=== PATIENT | male | born 1975 | race Caucasian/White ===

== ENCOUNTER 2016-12-06 11:03 | Emergency (ER) | payer OTHER ==
--- NOTE | 2016-12-06 11:36 | ERPHSYRPT ---
- History of Present Illness Time Seen by Provider: 12/06/16 11:31 Source: patient Exam Limitations: no limitations Patient Subjective Stated Complaint: sharpening mower blade last night and thinks he may have gotten a metal shaving in his right eye. pain and irritation to right eye Triage Nursing Assessment: right eye red with clear drainage noted. vision is 20/30 right eye and 20/20 left eye without correction. no fb noted at this time Physician History: sharpening mower blade last night and thinks he may have gotten a metal shaving in his right eye. pain and irritation to right eye, c/o pain and irritation on right lower outer quadrant of eye, no visual deficit, no peripheral vision deficit Timing/Duration: yesterday Location: right eye Severity: mild Apparent Injury: possibly Associated Symptoms: pain, sensitivity to light, redness, foreign body sensation , No burning, No itching, No eyelid swelling, No decreased vision, No blurred vision, No double vision Visual Assistive Devices: None Chemical Exposure: No Trauma: No Welding Arc/Tanning Bed Exposure: No Allergies/Adverse Reactions: adhesive Allergy (Mild, Verified 12/06/16 11:21) blueberry [Blueberry] Allergy (Mild, Verified 12/06/16 11:21) promethazine HCl [From Phenergan] Allergy (Mild, Verified 12/06/16 11:21) Home Medications: Clonazepam [Klonopin] 0.25 mg PO BID 11/16/12 [History] Morphine Sulfate Cr 60 mg [Ms Contin 60 mg] 15 mg PO BID 11/16/12 [History ] Meloxicam 7.5 mg [Mobic 7.5 MG] 7.5 mg PO HS 05/18/14 [History] Tizanidine HCl 4 mg [Zanaflex 4 MG] 4 mg PO HS 05/18/14 [History] Hx Tetanus, Diphtheria Vaccination/Date Given: Yes Hx Influenza Vaccination/Date Given: No Hx Pneumococcal Vaccination/Date Given: No - Review of Systems Constitutional: No Symptoms Eyes: Eye Pain, Eye Redness, Tearing, Foreign Body Sensation, No Itchy, No Photophobia, No Vision Changes, No Double Vision Ears, Nose, & Throat: No Symptoms Respiratory: No Symptoms Cardiac: No Symptoms - Past Medical History Pertinent Past Medical History: Yes Neurological History: Migraines Cardiac History: Other Respiratory History: No Pertinent History Endocrine Medical History: No Pertinent History Musculoskeletal History: Osteoarthritis Psycho-Social History: Anxiety Other Medical History: heart leaky valve - Past Surgical History Past Surgical History: Yes Gastrointestinal: Appendectomy Genitourinary: Kidney Surgery Musculoskeletal: Orthopedic Surgery Other Surgical History: back surgery, left and right knee, wrist surgery, sperm granuloma, left arm fx - Social History Smoking Status: Current every day smoker How long have you smoked: 31 Exposure to second hand smoke: No Drug Use: none Patient Lives Alone: No - Nursing Vital Signs Nursing Vital Signs: Initial Vital Signs Temperature 97.5 F 12/06/16 11:11 Pulse Rate 85 12/06/16 11:11 Respiratory Rate 16 12/06/16 11:11 Blood Pressure 117/74 12/06/16 11:11 O2 Sat by Pulse Oximetry 98 12/06/16 11:11 Pain Scale Pain Intensity 4 - Physical Exam General Appearance: no apparent distress Vision Acuity Right Eye: 20/20 Vision Acuity Left Eye: 20/20 Eye Exam: right eye: conjunctival hemorrhage, conjunctival inflammation, erythema (right lower outer quadrant), bilateral eye: PERRL, EOMI Ears, Nose, Throat Exam: normal ENT inspection SpO2: 98 Oxygen Delivery: Room Air - Course Nursing assessment & vital signs reviewed: Yes - Progress Progress: unchanged Counseled pt/family regarding: diagnosis, need for follow-up (with spinning mule tender or wood fence installer for further treatment) - Departure Time of Disposition: 11:40 Departure Disposition: Home Clinical Impression: Injury of right conjunctiva Qualifiers: Encounter type: initial encounter Qualified Code(s): S05.01XA - Injury of conjunctiva and corneal abrasion without foreign body, right eye, initial encounter Condition: Stable Critical Care Time: No Referrals: JOHAN GRULLON [Primary Care Provider] - MINNA ABERNATHY OD [NON-STAFF PHY W/O PRIVILEGES] - Instructions: Red Eye, Instill Eye Drops Additional Instructions: Please follow the instructions given to you. Please take your medication as prescribed if given. If symptoms recur or get worse, come back to the emergency room if you cannot reach your primary care physician, or call your primary care physician for an appointment. Again if your symptoms get worse, come back to the emergency room. Thanks for visiting emergency room, and let us take care of you.follow-up with your eye doctor on Wednesday Prescriptions: Tobramycin Sulfate/Dexameth [Tobradex Eye Drops] 2 drops OP QID #5 bottle
[2016-12-06 11:50] VITALS: BP 107/81; PULSE 81; O2SAT 96
== END 2016-12-06 11:50 | disposition home or self-care (01) ==
LOC: ED 11:03
DX: S05.01XA Injury of conjunctiva and corneal abrasion without foreign body, right eye, initial encounter (principal); W28.XXXA Contact with powered lawn mower, initial encounter
CPT/HCPCS: 99281

== ENCOUNTER 2018-01-20 17:24 | Emergency (ER) | payer OTHER ==
--- NOTE | 2018-01-20 17:41 | ERPHSYRPT ---
- History of Present Illness Time Seen by Provider: 01/20/18 17:39 Source: patient Physician History: mild ache pain of the left foot for 2months, no injury, no fever, pt is ambulatory, pt refused pain med Allergies/Adverse Reactions: adhesive Allergy (Mild, Verified 01/20/18 17:38) blueberry [Blueberry] Allergy (Mild, Verified 01/20/18 17:38) promethazine HCl [From Phenergan] Allergy (Mild, Verified 01/20/18 17:38) Home Medications: Morphine Sulfate Cr 60 mg [Ms Contin 60 mg] 15 mg PO BID 11/16/12 [History ] clonazePAM [Klonopin] 0.25 mg PO BID 11/16/12 [History] Tizanidine HCl 4 mg [Zanaflex 4 MG] 4 mg PO HS 05/18/14 [History] Hydrocodone Bit/Acetaminophen [Hydrocodon-Acetaminophn 10-325] 1 each PO QIDPRN PRN 01/20/18 [History] Hx Tetanus, Diphtheria Vaccination/Date Given: Yes Hx Influenza Vaccination/Date Given: No Hx Pneumococcal Vaccination/Date Given: No - Review of Systems Constitutional: No Fever Respiratory: No Dyspnea Cardiac: No Chest Pain Musculoskeletal: No Neck Pain, No Fall Skin: No Rash, No Skin Lesions Neurological: No Dizziness - Past Medical History Pertinent Past Medical History: Yes Neurological History: Migraines Cardiac History: Other Respiratory History: No Pertinent History Endocrine Medical History: No Pertinent History Musculoskeletal History: Osteoarthritis Psycho-Social History: Anxiety Other Medical History: heart leaky valve - Past Surgical History Past Surgical History: Yes Gastrointestinal: Appendectomy Genitourinary: Kidney Surgery Musculoskeletal: Orthopedic Surgery Other Surgical History: back surgery, left and right knee, wrist surgery, sperm granuloma, left arm fx - Social History Smoking Status: Current every day smoker How long have you smoked: 31 Exposure to second hand smoke: No Drug Use: none Patient Lives Alone: No - Nursing Vital Signs Nursing Vital Signs: Initial Vital Signs Temperature 97.9 F 01/20/18 17:36 Pulse Rate 75 01/20/18 17:36 Respiratory Rate 16 01/20/18 17:36 Blood Pressure 126/82 01/20/18 17:36 O2 Sat by Pulse Oximetry 96 01/20/18 17:36 Pain Scale Pain Intensity 5 - Physical Exam General Appearance: no apparent distress Extremity Exam: other (tender lateral mid left foot, no sts, no erythema, nontender ankle, full benson, sen and pulses intact) Neurologic Exam: alert, oriented x 3, cooperative Skin Exam: normal color, warm, dry, No rash - Course Nursing assessment & vital signs reviewed: Yes - Radiology Exams Foot X-ray Interpretation: Reviewed by me, No Fracture Ordered Tests: Active Orders 24 hr Category Date Time Status FOOT (MINIMUM 3 VIEWS) Stat Exams 01/20/18 Ordered Uric Acid Stat Lab 01/20/18 17:55 Completed Lab/Rad Data: Laboratory Results 01/20/18 Range/Units 17:55 Uric Acid 5.7 (3.5-7.2) mg/dL - Progress Progress: unchanged - Departure Time of Disposition: 18:49 Departure Disposition: Home Clinical Impression: Injury of right ankle and foot Qualifiers: Encounter type: initial encounter Qualified Code(s): S99.911A - Unspecified injury of right ankle, initial encounter; S99.921A - Unspecified injury of right foot, initial encounter Condition: Stable Critical Care Time: No Instructions: Contusion (DC) Additional Instructions: see [facility] [phone] orthopedics, return if worse, anna marie
[2018-01-20 19:04] VITALS: BP 103/66; PULSE 71; O2SAT 96
--- NOTE | 2018-01-21 09:06 | XRAY ---
Indication: Lateral pain for several months. No known injury. Comparison: None 3 nonweightbearing views of the left foot obtained. No bony, articular, or soft tissue abnormalities.
== END 2018-01-20 19:06 | disposition home or self-care (01) ==
LOC: ED 17:24
DX: S99.911A Unspecified injury of right ankle, initial encounter (principal); M19.90 Unspecified osteoarthritis, unspecified site; F32.9 Major depressive disorder, single episode, unspecified; Z79.899 Other long term (current) drug therapy
CPT/HCPCS: 36415; 73630; 84550; 99284

== ENCOUNTER 2018-05-20 17:10 | Emergency (ER) | payer OTHER ==
[2018-05-20 17:32] VITALS: O2SAT 98
[2018-05-20] MEDS ORDERED: Adacel Vial IM ONE ×2 (17:51→17:53)
--- NOTE | 2018-05-20 18:11 | ERPHSYRPT ---
- History of Present Illness Time Seen by Provider: 05/20/18 17:30 Source: patient Exam Limitations: clinical condition Patient Subjective Stated Complaint: CUT LEFT THUMB ON RAZOR KNIFE AT HOME THIS AM. HAD PRESSURE DRESSING ON IT ALL DAY BUT WILL NOT QUIT BLEEDING. TAKES ASA EVERYDAY. Triage Nursing Assessment: AMBULATED TO ROOM PER SELF. SKIN W/D. HAS 2CM LAC ALONG NAIL LINE OF LEFT THUMB. MINIMAL BLEEDING NOTED WITH DRESSING OFF. PRESSURE APPLIED AND THEN SOAKED IN HIBILCLENS. Physician History: PATIENT STATES WHILE AT WORK SUSTAINED A LACERATION TO TIP OF LEFT THUMB FROM RAZOR KNIFE. PATIENT COMPLAINS OF MINIMAL BLEEDING. Occurred: just prior to arrival Method of Injury: incised Quality: other (DENIES PAIN) Severity of Pain-Max: none Severity of Pain-Current: none Extremities Pain Location: thumb: left Modifying Factors: Improves With: nothing Associated Symptoms: none Allergies/Adverse Reactions: adhesive Allergy (Mild, Verified 01/20/18 17:38) blueberry [Blueberry] Allergy (Mild, Verified 01/20/18 17:38) promethazine HCl [From Phenergan] Allergy (Mild, Verified 01/20/18 17:38) prednisone Adverse Reaction (Verified 05/20/18 17:28) Home Medications: Morphine Sulfate Cr 60 mg [Ms Contin 60 mg] 15 mg PO BID 11/16/12 [History ] clonazePAM [Klonopin] 0.25 mg PO BID 11/16/12 [History] Tizanidine HCl 4 mg [Zanaflex 4 MG] 4 mg PO HS 05/18/14 [History] Hydrocodone Bit/Acetaminophen [Hydrocodon-Acetaminophn 10-325] 1 each PO QIDPRN PRN 01/20/18 [History] Hx Tetanus, Diphtheria Vaccination/Date Given: No Hx Influenza Vaccination/Date Given: No Hx Pneumococcal Vaccination/Date Given: No - Review of Systems Constitutional: No Symptoms Musculoskeletal: Injury Neurological: No Symptoms Psychological: No Symptoms Endocrine: No Symptoms - Past Medical History Pertinent Past Medical History: Yes Neurological History: Migraines Cardiac History: Other Respiratory History: No Pertinent History Endocrine Medical History: No Pertinent History Musculoskeletal History: Osteoarthritis Psycho-Social History: Anxiety Other Medical History: heart leaky valve - Past Surgical History Past Surgical History: Yes Gastrointestinal: Appendectomy Genitourinary: Kidney Surgery Musculoskeletal: Orthopedic Surgery Other Surgical History: back surgery, left and right knee, wrist surgery, sperm granuloma, left arm fx - Social History Smoking Status: Current every day smoker How long have you smoked: 29 Exposure to second hand smoke: No Drug Use: none Patient Lives Alone: No - Nursing Vital Signs Nursing Vital Signs: Initial Vital Signs Temperature 98.5 F 05/20/18 17:20 Pulse Rate 63 05/20/18 17:20 Respiratory Rate 16 05/20/18 17:20 Blood Pressure 126/83 05/20/18 17:20 O2 Sat by Pulse Oximetry 98 05/20/18 17:20 Pain Scale Pain Intensity 1 - Physical Exam General Appearance: no apparent distress Hand Exam: soft tissue tenderness (THERE IS A 8MM SUPERFICAL LACERATION ADJACENT TO NAIL FOLD RADIAL ASPECT LEFT THUMB) DTR - Upper Extremity Exam: bicep (R): 2+, bicep (L): 2+, tricep (R): 2+, tricep (L): 2+ SpO2 Interpretation: normal SpO2: 98 Procedures - Laceration/Wound Repair Left Other Wound Location: Left (THUMB) Wound Length (cm): 0.8 Wound's Depth, Shape: superficial, linear Wound Explored: clean Irrigated: Yes Hibiclens Prep: Yes Anesthesia: digital block, 2% Lidocaine Volume Anesthetic (ccs): 3 Wound Repaired With: sutures Suture Size/Type: 5-0 Number of Sutures: 3 Sterile Dressing Applied?: Yes Ordered Tests: Medication Summary Discontinued Medications Generic Name Dose Route Start Last Admin Trade Name Freq PRN Reason Stop Dose Admin Diphtheria/Tetanus/Acell Pertussis 0.5 ml 05/20/18 17:51 05/20/18 17:54 Adacel Vial IM 05/20/18 17:52 0.5 ml .ONCE ONE Administration Diphtheria/Tetanus/Acell Pertussis Confirm 05/20/18 17:53 Adacel Vial Administered 05/20/18 17:54 Dose 0.5 ml IM .STK-MED ONE - Progress Progress Note: 05/20/18 18:10 ADMINISTERED ADACEL 0.5ML IM - Departure Time of Disposition: 18:15 Departure Disposition: Home Clinical Impression: LACERATION LEFT THUMB Condition: Stable Critical Care Time: No Referrals: NELLI FALCON [Primary Care Provider] - Additional Instructions: TYLENOL OR MOTRIN NEEDED FOR PAIN. HAVE STITCHES REMOVED AT 10 DAYS. WATCH FOR SIGNS OF INFECTION, REDNESS, SWELLING OR DRAINAGE. ANTIBIOTIC AUGMENTIN 875 MG TWICE DAILY FOR 7 DAYS. CLEANSE WOUND WITH SOAP AND WATER 4-5 TIMES DAILY NEEDED. Prescriptions: Amox Tr/Potass Clav. 875 mg [Augmentin 875-125 Tablet] 875 mg PO BID #14 tablet
[2018-05-20 18:13] VITALS: BP 112/84; PULSE 71
== END 2018-05-20 18:20 | disposition home or self-care (01) ==
LOC: ED 17:10
DX: S61.012A Laceration without foreign body of left thumb without damage to nail, initial encounter (principal); W45.8XXA Other foreign body or object entering through skin, initial encounter
CPT/HCPCS: 12001; 90471; 90715; 99283

== ENCOUNTER 2018-12-04 18:20 | Emergency (ER) | payer OTHER ==
--- NOTE | 2018-12-04 18:23 | ERPHSYRPT ---
- History of Present Illness Time Seen by Provider: 12/04/18 18:22 Source: patient, family Exam Limitations: no limitations Physician History: 43 y/o white male presents with headache, dizziness and persistent nausea 20 to 30 minutes after orozco of car he was working on fell onto back of head causing forehead and left eyebrow to hit object. pt states his tetanus status is utd. Occurred: just prior to arrival Severity: mild Head Injury Location: frontal, parietal Method of Injury: direct blow (from orozco of a car) Loss of Consciousness: no loss of consciousness Associated Symptoms: nausea, other (dizziness) Allergies/Adverse Reactions: adhesive Allergy (Mild, Verified 12/04/18 18:36) blueberry [Blueberry] Allergy (Mild, Verified 12/04/18 18:36) promethazine HCl [From Phenergan] Allergy (Mild, Verified 12/04/18 18:36) prednisone Adverse Reaction (Verified 12/04/18 18:36) Home Medications: Morphine Sulfate Cr 60 mg [Ms Contin 60 mg] 15 mg PO BID 11/16/12 [History ] Tizanidine HCl 4 mg [Zanaflex 4 MG] 4 mg PO HS 05/18/14 [History] Hydrocodone Bit/Acetaminophen [Hydrocodon-Acetaminophn 10-325] 1 each PO QIDPRN PRN 01/20/18 [History] Sildenafil Citrate [Viagra] 25 mg PO UD PRN 12/04/18 [History] Hx Tetanus, Diphtheria Vaccination/Date Given: No Hx Influenza Vaccination/Date Given: No Hx Pneumococcal Vaccination/Date Given: No - Review of Systems Constitutional: No Symptoms Eyes: No Symptoms Ears, Nose, & Throat: No Symptoms Respiratory: No Symptoms Cardiac: No Symptoms Abdominal/Gastrointestinal: Nausea Genitourinary Symptoms: No Symptoms Musculoskeletal: No Symptoms Skin: Other (abrasion to left eyebrow.) Neurological: Dizziness, Headache Psychological: No Symptoms Endocrine: No Symptoms Hematologic/Lymphatic: No Symptoms Immunological/Allergic: No Symptoms All Other Systems: Reviewed and Negative - Past Medical History Pertinent Past Medical History: Yes Neurological History: Migraines Cardiac History: Other Respiratory History: No Pertinent History Endocrine Medical History: No Pertinent History Musculoskeletal History: Osteoarthritis GI Medical History: No Pertinent History Psycho-Social History: Anxiety Male Reproductive Disorders: No Pertinent History Other Medical History: heart leaky valve - Past Surgical History Past Surgical History: Yes Neuro Surgical History: No Pertinent History Cardiac: No Pertinent History Respiratory: No Pertinent History Gastrointestinal: Appendectomy Genitourinary: Kidney Surgery Musculoskeletal: Orthopedic Surgery Other Surgical History: back surgery, left and right knee, wrist surgery, sperm granuloma, left arm fx - Social History Smoking Status: Current every day smoker How long have you smoked: 29 Exposure to second hand smoke: No Drug Use: none Patient Lives Alone: No - Nursing Vital Signs Nursing Vital Signs: Initial Vital Signs Temperature 98.4 F 12/04/18 18:27 Pulse Rate 82 12/04/18 18:27 Blood Pressure 117/72 12/04/18 18:27 O2 Sat by Pulse Oximetry 95 12/04/18 18:27 Pain Scale Pain Intensity 0 - Ricardo Coma Score Best Eye Response (Ricardo): (4) open spontaneously Best Verbal Response (Ricardo): (5) oriented Best Motor Response (Hatch): (6) obeys commands Ricardo Total: 15 - Physical Exam General Appearance: no apparent distress, alert, anxiety Head Injury: swelling, tenderness (abrasion left eyebrow 0.5cm) Eye Exam: bilateral eye: normal inspection, PERRL, EOMI ENT Exam: airway nml, nml ext.inspection, No evidence of ENT injury Neck Exam: supple, trachea midline, full range of motion, normal alignment Cardiovascular/Respiratory Exam: chest non-tender, normal breath sounds, regular rate/rhythm, heart sounds normal, no respiratory distress Gastrointestinal/Abdominal Exam: soft, non tender Rectal Exam: not done Back Exam: normal inspection, normal range of motion, No CVA tenderness Extremity Exam: non-tender, normal range of motion, normal inspection Mental Status Exam: alert, oriented x 3, 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 Exam: normal hearing, normal speech, PERRL Coordination/Gait Exam: normal finger to nose, normal gait, normal cerebellar function Motor/Sensory Exam: no motor deficit, no sensory deficit, no pronator drift Skin Exam: other (abrasion left eyebrow) Lymphatic Exam: No adenopathy SpO2 Interpretation: normal O2 Delivery: Room Air - Course Nursing assessment & vital signs reviewed: Yes Ordered Tests: Active Orders 24 hr Category Date Time Status Wound Care STAT Care 12/04/18 18:27 Active HEAD WITHOUT CONTRAST [CT] Stat Exams 12/04/18 18:27 Taken - Progress Progress: unchanged Progress Note: 12/04/18 19:39 ct head-no acute intracranial process. no fx Counseled pt/family regarding: diagnosis, rad results - Departure Departure Disposition: Home Clinical Impression: Head trauma Condition: Stable Critical Care Time: No Referrals: NELLI FALCON [Primary Care Provider] - Additional Instructions: keep repair site dry for 24 hours. after 24 hours, may wash daily. leave steristrips in place until they fall off on their own. may use tylenol for pain
[2018-12-04 19:49] VITALS: BP 126/72; PULSE 78; O2SAT 99
--- NOTE | 2018-12-04 21:01 | XRAY ---
Indication: Left frontal head injury/laceration. Dizziness. Multiple contiguous axial images obtained through the head without contrast. Comparison: October 06, 2006. Again normal appearing brain parenchyma, ventricles, and bony calvarium. Visualized paranasal sinuses and mastoid air cells are clear. Impression: Normal CT head without contrast exam. Comment: Preliminary interpretation was made by [facility]. No discrepancy. CTDI 51.26.
== END 2018-12-04 19:49 | disposition home or self-care (01) ==
LOC: ED 18:20
DX: S09.90XA Unspecified injury of head, initial encounter (principal); R42 Dizziness and giddiness; S00.212A Abrasion of left eyelid and periocular area, initial encounter; W01.198A Fall on same level from slipping, tripping and stumbling with subsequent striking against other object, initial encounter
CPT/HCPCS: 70450; 99283

== ENCOUNTER 2019-06-22 21:32 | Emergency (ER) | payer OTHER ==
--- NOTE | 2019-06-22 22:06 | ERPHSYRPT ---
- History of Present Illness Time Seen by Provider: 06/22/19 22:04 Source: patient Exam Limitations: no limitations Patient Subjective Stated Complaint: pt states that he hit his knee on the bottom of the car door on wednesday, pt states that he has had 2 prior surgeries, pt states he called his ortho doctor and not able to get in until the of next month, pt states that his pain has not let up, pt states that he has iced and applied heat with no relief, pt states sharp shooting pain with movenment Triage Nursing Assessment: pt ambulated into the er, pt is axo x3, pt walked with a limp, pt states 8/10 to left knee, decreased flextion, limited ROM, states 8/10 pain to left knee, tachycardic, no deformity to knee, no bruising present, tenderness with palpation Physician History: Three days ago pt was getting in his personal truck and hit his left knee on the bottom of the truck door with resultant pain; denies numbness of the left toes. pt states he has had 2 prior surgeries to the left knee. pt states his left knee hurts worse with movement. Allergies/Adverse Reactions: adhesive Allergy (Mild, Verified 06/22/19 21:57) blueberry [Blueberry] Allergy (Mild, Verified 06/22/19 21:57) promethazine HCl [From Phenergan] Allergy (Mild, Verified 06/22/19 21:57) prednisone Adverse Reaction (Verified 06/22/19 21:57) Home Medications: Morphine Sulfate Cr 60 mg [Ms Contin 60 mg] 15 mg PO BID 11/16/12 [History ] Tizanidine HCl 4 mg [Zanaflex 4 MG] 4 mg PO HS 05/18/14 [History] Hydrocodone Bit/Acetaminophen [Hydrocodon-Acetaminophn 10-325] 1 each PO QIDPRN PRN 01/20/18 [History] Sildenafil Citrate [Viagra] 25 mg PO UD PRN 12/04/18 [History] Hx Tetanus, Diphtheria Vaccination/Date Given: Yes Hx Influenza Vaccination/Date Given: No Hx Pneumococcal Vaccination/Date Given: No - Review of Systems Musculoskeletal: Joint Pain (left knee) - Past Medical History Pertinent Past Medical History: Yes Neurological History: Migraines Cardiac History: Other Respiratory History: No Pertinent History Endocrine Medical History: No Pertinent History Musculoskeletal History: Osteoarthritis GI Medical History: No Pertinent History Psycho-Social History: Anxiety Male Reproductive Disorders: No Pertinent History Other Medical History: heart leaky valve - Past Surgical History Past Surgical History: Yes Neuro Surgical History: No Pertinent History Cardiac: No Pertinent History Respiratory: No Pertinent History Gastrointestinal: Appendectomy Genitourinary: Kidney Surgery Musculoskeletal: Orthopedic Surgery Male Surgical History: Testicular Surgery Other Surgical History: back surgery, left and right knee, wrist surgery, sperm granuloma, left arm fx - Social History Smoking Status: Light tobacco smoker How long have you smoked: 29 Exposure to second hand smoke: No Drug Use: none Patient Lives Alone: No - Nursing Vital Signs Nursing Vital Signs: Initial Vital Signs Temperature 97.8 F 06/22/19 21:36 Pulse Rate 104 H 06/22/19 21:36 Respiratory Rate 15 06/22/19 21:36 Blood Pressure 119/74 06/22/19 21:36 O2 Sat by Pulse Oximetry 97 06/22/19 21:36 Pain Scale Pain Intensity 5 - Physical Exam General Appearance: alert Hips Exam: left: normal range of motion Legs Exam: left leg: normal range of motion Knees Exam: left knee: pain (rom full with obvious discomfort.), soft tissue tenderness (left suprapatellar area - mild.) Ankle Exam: left ankle: normal range of motion Foot Exam: left foot: normal range of motion Neuro/Tendon Exam: normal sensation Mental Status Exam: alert, cooperative Skin Exam: other (light brown bruise on left suprapatellar area ~ 1 cm diameter. ) SpO2 Interpretation: normal SpO2: 97 O2 Delivery: Room Air - Course Nursing assessment & vital signs reviewed: Yes - Radiology Exams Left Knee X-ray Interpretation: Interpreted by me (no fx) Ordered Tests: Active Orders 24 hr Category Date Time Status Vic Bandage Application -[facility] STAT Care 06/22/19 22:12 Active KNEE (3 VIEWS) Stat Exams 06/22/19 22:49 Taken Medication Summary Discontinued Medications Generic Name Dose Route Start Last Admin Trade Name Freq PRN Reason Stop Dose Admin Hydrocodone Bitart/Acetaminophen 2 tab 06/22/19 22:12 06/22/19 22:20 [place] 5/325 Mg PO 06/22/19 22:13 2 tab STAT ONE Administration Hydrocodone Bitart/Acetaminophen Confirm 06/22/19 22:19 [place] 5/325 Mg Administered 06/22/19 22:20 Dose 2 tab .ROUTE .STK-MED ONE - Progress Progress: unchanged Progress Note: 06/22/19 23:41 Pt states he has pain medicine and crutches at home. - Departure Departure Disposition: Home Clinical Impression: contusion/sprain of left knee Condition: Stable Critical Care Time: No Referrals: NELLI FALCON [Primary Care Provider] - Instructions: Knee Sprain (DC) Additional Instructions: Elevate left knee above heart level for 24 hours. Vic wrap to left knee for 4 days. Use crutches for 2 weeks.
[2019-06-22] MEDS ORDERED: NORCO 5/325 MG PO ONE (22:12)
[2019-06-22] MEDS ORDERED: NORCO 5/325 MG ONE (22:19)
[2019-06-23 00:05] VITALS: BP 109/84; PULSE 92; O2SAT 98
--- NOTE | 2019-06-23 09:08 | XRAY ---
Indication: Pain following injury one week ago. Comparison: None 3 views of the left knee demonstrates minimal medial joint space narrowing, posterior fabella, and anterior punctate soft tissue calcified granuloma. No other bony, articular, or soft tissue abnormalities.
== END 2019-06-22 23:58 | disposition home or self-care (01) ==
LOC: ED 21:32
DX: S83.92XA Sprain of unspecified site of left knee, initial encounter (principal); S80.02XA Contusion of left knee, initial encounter; W22.09XA Striking against other stationary object, initial encounter; Y93.89 Activity, other specified; M25.562 Pain in left knee
CPT/HCPCS: 73562; 99284; A9270-GY

== ENCOUNTER 2021-06-05 18:21 | Observation (INO) | payer BC, OTHER ==
[2021-06-05 19:05] LABS: Absolute Neutrophil Ct (ANC) 4.31 (1.4-6.9); Basophil (Absolute #) 0.06 (0-0.4); Eosinophil % 4.1 % (0.00-5.0); Eosinophil (Absolute #) 0.33 (0-0.5); Hematocrit 44.9 % (42-50); Lymphocyte (Absolute #) 2.51 (1.0-4.6); Lymphocytes % 31.1 % (24.0-44.0); Mean Cell Volume 91.8 fl (78-100); Mean Corpuscular Hemoglobin 30.7 pg (26-32); Mean Corpuscular Hgb Concent. 33.4 g/dl (32-36); Mean Platelet Volume 9.1 fl (7.5-11.0); Monocyte (Absolute #) 0.86 (0.0-1.3); Monocytes % 10.7 % (0.0-12.0); Neutrophil % 53.4 % (36.0-66.0); Platelet Count 343 K/mm3 (150-450); Red Blood Count 4.89 M/mm3 (4.1-5.6); Red Cell Distribution Width 13.2 % (11.5-14.0); White Blood Count 8.1 K/mm3 (4.0-10.5)
[2021-06-05 19:12] LABS: ALBUMIN 4.3 g/dL (3.5-5.0); ANION GAP 11.1 MEQ/L (5-15); Appearance SLIGHTLY CLOUDY (CLEAR); BILIRUBIN,TOTAL 0.4 mg/dL (0.2-1.3); Bacteria MODERATE /HPF (NEGATIVE); Bilirubin NEGATIVE (NEGATIVE); Blood NEGATIVE Ery/ul (0-5); Calcium 9.5 mg/dL (8.4-10.2); Creatinine 1 1.37 mg/dL (0.66-1.25); Glucose NEGATIVE (NEGATIVE); Ketones TRACE (NEGATIVE); Leukocyte Esterase NEGATIVE (NEGATIVE); MAGNESIUM 2.1 mg/dL (1.6-2.3); Mucus SLIGHT /HPF (NEGATIVE); Nitrite NEGATIVE (NEGATIVE); Potassium 4.1 mmol/L (3.5-5.1); Protein,Urine Dip 100 (Negative); Specific Gravity 1.025 (1.005-1.025); Total Protein 6.7 g/dL (6.3-8.2); Urobilinogen 2 mg/dL (0-1)
[2021-06-05 19:20] LABS: Amphetamine,Urine NEGATIVE (NEGATIVE); Barbiturate,Urine NEGATIVE (NEGATIVE); Benzodiazepine,Urine NEGATIVE (NEGATIVE); Cocaine,Urine NEGATIVE (NEGATIVE); Methadone,Urine NEGATIVE (NEGATIVE); Opiate,Urine NEGATIVE (NEGATIVE); PCP,Urine NEGATIVE (NEGATIVE); THC,Urine NEGATIVE (NEGATIVE)
[2021-06-05] MEDS: Sodium Chloride 0.9% 1000 ML 1,000 ML IV SCH ×2 (19:22→23:54)
[2021-06-05] MEDS ORDERED: ROCEPHIN 1 Gm-D5w 50 ml Bag** 1 G/50 ML IVPB IV STA (20:48)
--- NOTE | 2021-06-05 20:48 | ERPHSYRPT ---
- History of Present Illness Time Seen by Provider: 06/05/21 18:45 Source: patient Exam Limitations: no limitations Patient Subjective Stated Complaint: Seizure Triage Nursing Assessment: Patient ambulated back to ED and transferred self to bed. Patient A+O X 3. Patient's skin pink, warm and dry. Patient states he had a seizure today. Patient states all he remember was sitting on the couch and waking up to EMS staff and his freaking out. Patient has no hx of seizures. Patient complains of headache and tongue pain 5/10. Patient has contusion to tip of tongue. Patient does not remember anything from this evening. Physician History: Patient is a 45-year-old male presents to emergency department via EMS for leni luation of a first-time seizure. Patient states he was at home sitting on his couch. When he had a seizure. observed a generalized seizure. Patient bit his tongue. There was no incontinence. Seizure lasted several minutes. EMS was called. Patient refused transport of EMS. However patient agreed to come to our ED by private vehicle. Upon arrival patient complained of a headache. There was no head trauma reported. No fever. No nausea vomiting or diaphoresis. Patient has a tongue contusion to the anterior tip of tongue. No laceration. Patient states he feels fine otherwise. Patient has poor recollection of the time surrounding the seizure. Patient states he has a sister that was diagnosed with epilepsy at approximately same age that patient is today. 44. Patient is a smoker. Patient denies alcohol use. 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 Timing/Duration: today Severity: moderate Modifying Factors: Improves With: nothing Associated Symptoms: denies symptoms Allergies/Adverse Reactions: adhesive Allergy (Mild, Verified 06/05/21 18:31) blueberry [Blueberry] Allergy (Mild, Verified 06/05/21 18:31) promethazine HCl [From Phenergan] Allergy (Mild, Verified 06/05/21 18:31) prednisone Adverse Reaction (Verified 06/05/21 18:31) Home Medications: Morphine Sulfate Cr 60 mg [Ms Contin 60 mg] 15 mg PO BID 11/16/12 [History] Hydrocodone/Acetaminophen [Hydrocodon-Acetaminophn 10-325] 1 each PO QIDPRN PRN 01/20/18 [History] Sildenafil Citrate [Viagra] 25 mg PO UD PRN 12/04/18 [History] Hx Tetanus, Diphtheria Vaccination/Date Given: Yes Hx Influenza Vaccination/Date Given: No Hx Pneumococcal Vaccination/Date Given: No Immunizations Up to Date: Yes Travel Risk - International Travel Have you traveled outside of the country in past 3 weeks: No - Coronavirus Screening Are you exhibiting any of the following symptoms?: No Close contact with a COVID-19 positive Pt in past 14-21 Days: No - Vaccine Status Have you recieved a Covid-19 vaccination: No - Review of Systems Constitutional: No Symptoms, No Fever, No Chills Eyes: No Symptoms Ears, Nose, & Throat: No Symptoms Respiratory: No Symptoms, No Cough, No Dyspnea Cardiac: No Symptoms, No Chest Pain, No Edema, No Syncope Abdominal/Gastrointestinal: No Symptoms, No Abdominal Pain, No Nausea, No Vomiting, No Diarrhea Genitourinary Symptoms: No Symptoms, No Dysuria Musculoskeletal: No Symptoms, No Back Pain, No Neck Pain Skin: No Symptoms, No Rash Neurological: No Symptoms, No Dizziness, No Focal Weakness, No Sensory Changes Psychological: No Symptoms Endocrine: No Symptoms Hematologic/Lymphatic: No Symptoms Immunological/Allergic: No Symptoms All Other Systems: Reviewed and Negative - Past Medical History Pertinent Past Medical History: Yes Neurological History: Migraines Cardiac History: Other Respiratory History: No Pertinent History Endocrine Medical History: No Pertinent History Musculoskeletal History: Osteoarthritis GI Medical History: No Pertinent History Psycho-Social History: Anxiety Male Reproductive Disorders: No Pertinent History Other Medical History: heart leaky valve - Past Surgical History Past Surgical History: Yes Neuro Surgical History: No Pertinent History Cardiac: No Pertinent History Respiratory: No Pertinent History Gastrointestinal: Appendectomy Genitourinary: Kidney Surgery Musculoskeletal: Orthopedic Surgery Male Surgical History: Testicular Surgery Other Surgical History: back surgery, left and right knee, wrist surgery, sperm granuloma, left arm fx - Social History Smoking Status: Light tobacco smoker How long have you smoked: 29 Exposure to second hand smoke: Yes Drug Use: none Patient Lives Alone: No - Nursing Vital Signs Nursing Vital Signs: Initial Vital Signs Temperature 98.0 F 06/05/21 18:33 Pulse Rate 98 H 06/05/21 18:33 Respiratory Rate 18 06/05/21 18:33 Blood Pressure 141/99 06/05/21 18:33 O2 Sat by Pulse Oximetry 99 06/05/21 18:33 Pain Scale Pain Intensity 6 - Physical Exam General Appearance: no apparent distress, alert Eye Exam: PERRL/EOMI, eyes nml inspection Ears, Nose, Throat Exam: normal ENT inspection, TMs normal, pharynx normal, moist mucous membranes Neck Exam: normal inspection, non-tender, supple, full range of motion Respiratory Exam: normal breath sounds, lungs clear, airway intact, No respiratory distress Cardiovascular Exam: regular rate/rhythm, normal heart sounds, normal peripheral pulses Gastrointestinal/Abdomen Exam: soft, normal bowel sounds, No tenderness, No mass Back Exam: normal inspection, normal range of motion, No CVA tenderness, No vertebral tenderness Extremity Exam: normal inspection, normal range of motion, pelvis stable Neurologic Exam: alert, oriented x 3, cooperative, 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 Normal CTA head.) Ordered Tests: Active Orders 24 hr Category Date Time Status Key Operator STAT Care 06/05/21 18:51 Active EKG-ER Only STAT Care 06/05/21 18:50 Active IV Insertion STAT Care 06/05/21 18:50 Active Pulse Oximetry (ED) STAT Care 06/05/21 18:50 Active CTA HEAD W AND/OR WO CONTRAST [CT] Stat Exams 06/05/21 20:10 Taken CBC W DIFF Stat Lab 06/05/21 18:57 Completed CMP Stat Lab 06/05/21 18:57 Completed CULTURE,URINE Stat Lab 06/05/21 18:57 Received D-DIMER QUANTITATIVE Stat Lab 06/05/21 18:57 Completed MAGNESIUM Stat Lab 06/05/21 18:57 Completed TROPONIN Q3H Lab 06/05/21 18:57 Completed TROPONIN Q3H Lab 06/05/21 21:50 Completed TROPONIN Q3H Lab 06/06/21 01:00 Ordered TROPONIN Q3H Lab 06/06/21 04:00 Ordered TROPONIN Q3H Lab 06/06/21 07:00 Ordered UA W/RFX UR CULTURE Stat Lab 06/05/21 18:57 Completed Urine Triage Profile Stat Lab 06/05/21 18:57 Completed Transfer Order Routine Transfer 06/05/21 Ordered Medication Summary Generic Name Dose Route Start Last Admin Trade Name Mingo PRN Reason Stop Dose Admin Sodium Chloride 1,000 mls @ 100 mls/hr 06/05/21 19:00 06/05/21 19:22 Sodium Chloride 0.9% 1000 Ml IV 07/05/21 18:59 100 mls/hr .Q10H EZ Administration Discontinued Medications Generic Name Dose Route Start Last Admin Trade Name Mingo PRN Reason Stop Dose Admin Ceftriaxone Sodium/Dextrose 1 g in 50 mls @ 100 mls/hr 06/05/21 20:48 06/05/21 21:30 Rocephin 1 Gm-D5w 50 Ml Bag IV 06/05/21 21:17 Infused STAT STA Infusion Ceftriaxone Sodium/Dextrose Confirm 06/05/21 20:49 Rocephin 1 Gm-D5w 50 Ml Bag Administered 06/05/21 20:50 Dose 1 g in 50 mls @ ud IV .K-MED ONE Lab/Rad Data: Laboratory Result Diagrams 06/05/21 18:57 06/05/21 18:57 Laboratory Results 06/05/21 06/05/21 06/05/21 Range/Units 21:50 21:32 18:57 WBC (4.0-10.5) K/mm3 RBC (4.1-5.6) M/mm3 Hgb (12.5-18.0) gm/dl Hct (42-50) % MCV (78-100) fl MCH (26-32) pg MCHC (32-36) g/dl RDW (11.5-14.0) % Plt Count (150-450) K/mm3 MPV (7.5-11.0) fl Gran % (36.0-66.0) % Eos # (Auto) (0-0.5) Absolute Lymphs (auto) (1.0-4.6) Absolute Monos (auto) (0.0-1.3) Lymphocytes % (24.0-44.0) % Monocytes % (0.0-12.0) % Eosinophils % (0.00-5.0) % Basophils % (0.0-0.4) % Absolute Granulocytes (1.4-6.9) Basophils # (0-0.4) D-Dimer (215-500) ng/mL Sodium (137-145) mmol/L Potassium (3.5-5.1) mmol/L Chloride (98-107) mmol/L Carbon Dioxide (22-30) mmol/L Anion Gap (5-15) MEQ/L BUN (9-20) mg/dL Creatinine (0.66-1.25) mg/dL Estimated GFR ML/MIN Glucose (74-106) mg/dL Calcium (8.4-10.2) mg/dL Magnesium (1.6-2.3) mg/dL Total Bilirubin (0.2-1.3) mg/dL AST (17-59) U/L ALT (0-50) U/L Alkaline Phosphatase (38-126) U/L Troponin I < 0.012 < 0.012 (0.000-0.034) ng/mL Serum Total Protein (6.3-8.2) g/dL Albumin (3.5-5.0) g/dL Urine Color (YELLOW) Urine Appearance (CLEAR) Urine pH (5-6) Ur Specific [place] (1.005-1.025) Urine Protein (Negative) Urine Ketones (NEGATIVE) Urine Blood (0-5) Keith/ul Urine Nitrite (NEGATIVE) Urine Bilirubin (NEGATIVE) Urine Urobilinogen (0-1) mg/dL Ur Leukocyte Esterase (NEGATIVE) Urine WBC (Auto) (0-5) /HPF Urine RBC (Auto) (0-2) /HPF U Epithel Cells (Auto) (FEW) /HPF Urine Bacteria (Auto) (NEGATIVE) /HPF Urine Mucus (Auto) (NEGATIVE) /HPF Urine Culture Reflexed (NO) Urine Glucose (NEGATIVE) mg/dL Urine Opiates Level (NEGATIVE) Ur Methadone (NEGATIVE) Urine Barbiturates (NEGATIVE) Ur Phencyclidine (PCP) (NEGATIVE) Urine Amphetamine (NEGATIVE) U Benzodiazepine Level (NEGATIVE) Urine Cocaine (NEGATIVE) Urine Marijuana (THC) (NEGATIVE) Influenza Type A Ag NEGATIVE (NEGATIVE) Influenza Type B Ag NEGATIVE (NEGATIVE) RSV (PCR) NEGATIVE (Negative) SARS-CoV-2 (PCR) NEGATIVE (NEGATIVE) 06/05/21 06/05/21 06/05/21 Range/Units 18:57 18:57 18:57 WBC (4.0-10.5) K/mm3 RBC (4.1-5.6) M/mm3 Hgb (12.5-18.0) gm/dl Hct (42-50) % MCV (78-100) fl MCH (26-32) pg MCHC (32-36) g/dl RDW (11.5-14.0) % Plt Count (150-450) K/mm3 MPV (7.5-11.0) fl Gran % (36.0-66.0) % Eos # (Auto) (0-0.5) Absolute Lymphs (auto) (1.0-4.6) Absolute Monos (auto) (0.0-1.3) Lymphocytes % (24.0-44.0) % Monocytes % (0.0-12.0) % Eosinophils % (0.00-5.0) % Basophils % (0.0-0.4) % Absolute Granulocytes (1.4-6.9) Basophils # (0-0.4) D-Dimer < 215 L (215-500) ng/mL Sodium (137-145) mmol/L Potassium (3.5-5.1) mmol/L Chloride (98-107) mmol/L Carbon Dioxide (22-30) mmol/L Anion Gap (5-15) MEQ/L BUN (9-20) mg/dL Creatinine (0.66-1.25) mg/dL Estimated GFR ML/MIN Glucose (74-106) mg/dL Calcium (8.4-10.2) mg/dL Magnesium (1.6-2.3) mg/dL Total Bilirubin (0.2-1.3) mg/dL AST (17-59) U/L ALT (0-50) U/L Alkaline Phosphatase (38-126) U/L Troponin I (0.000-0.034) ng/mL Serum Total Protein (6.3-8.2) g/dL Albumin (3.5-5.0) g/dL Urine Color YELLOW (YELLOW) Urine Appearance SLIGHTLY CLOUDY (CLEAR) Urine pH 6.0 (5-6) Ur Specific [place] 1.025 (1.005-1.025) Urine Protein 100 (Negative) Urine Ketones TRACE (NEGATIVE) Urine Blood NEGATIVE (0-5) Keith/ul Urine Nitrite NEGATIVE (NEGATIVE) Urine Bilirubin NEGATIVE (NEGATIVE) Urine Urobilinogen 2 (0-1) mg/dL Ur Leukocyte Esterase NEGATIVE (NEGATIVE) Urine WBC (Auto) 6-10 (0-5) /HPF Urine RBC (Auto) 6-10 (0-2) /HPF U Epithel Cells (Auto) NONE (FEW) /HPF Urine Bacteria (Auto) MODERATE (NEGATIVE) /HPF Urine Mucus (Auto) SLIGHT (NEGATIVE) /HPF Urine Culture Reflexed YES (NO) Urine Glucose NEGATIVE (NEGATIVE) mg/dL Urine Opiates Level NEGATIVE (NEGATIVE) Ur Methadone NEGATIVE (NEGATIVE) Urine Barbiturates NEGATIVE (NEGATIVE) Ur Phencyclidine (PCP) NEGATIVE (NEGATIVE) Urine Amphetamine NEGATIVE (NEGATIVE) U Benzodiazepine Level NEGATIVE (NEGATIVE) Urine Cocaine NEGATIVE (NEGATIVE) Urine Marijuana (THC) NEGATIVE (NEGATIVE) Influenza Type A Ag (NEGATIVE) Influenza Type B Ag (NEGATIVE) RSV (PCR) (Negative) SARS-CoV-2 (PCR) (NEGATIVE) 06/05/21 06/05/21 Range/Units 18:57 18:57 WBC 8.1 (4.0-10.5) K/mm3 RBC 4.89 (4.1-5.6) M/mm3 Hgb 15.0 (12.5-18.0) gm/dl Hct 44.9 (42-50) % MCV 91.8 (78-100) fl MCH 30.7 (26-32) pg MCHC 33.4 (32-36) g/dl RDW 13.2 (11.5-14.0) % Plt Count 343 (150-450) K/mm3 MPV 9.1 (7.5-11.0) fl Gran % 53.4 (36.0-66.0) % Eos # (Auto) 0.33 (0-0.5) Absolute Lymphs (auto) 2.51 (1.0-4.6) Absolute Monos (auto) 0.86 (0.0-1.3) Lymphocytes % 31.1 (24.0-44.0) % Monocytes % 10.7 (0.0-12.0) % Eosinophils % 4.1 (0.00-5.0) % Basophils % 0.7 (0.0-0.4) % Absolute Granulocytes 4.31 (1.4-6.9) Basophils # 0.06 (0-0.4) D-Dimer (215-500) ng/mL Sodium 140 (137-145) mmol/L Potassium 4.1 (3.5-5.1) mmol/L Chloride 106 (98-107) mmol/L Carbon Dioxide 27 (22-30) mmol/L Anion Gap 11.1 (5-15) MEQ/L BUN 16 (9-20) mg/dL Creatinine 1.37 H (0.66-1.25) mg/dL Estimated GFR 60.0 ML/MIN Glucose 103 (74-106) mg/dL Calcium 9.5 (8.4-10.2) mg/dL Magnesium 2.1 (1.6-2.3) mg/dL Total Bilirubin 0.40 (0.2-1.3) mg/dL AST 17 (17-59) U/L ALT 16 (0-50) U/L Alkaline Phosphatase 63 (38-126) U/L Troponin I (0.000-0.034) ng/mL Serum Total Protein 6.7 (6.3-8.2) g/dL Albumin 4.3 (3.5-5.0) g/dL Urine Color (YELLOW) Urine Appearance (CLEAR) Urine pH (5-6) Ur Specific [place] (1.005-1.025) Urine Protein (Negative) Urine Ketones (NEGATIVE) Urine Blood (0-5) Keith/ul Urine Nitrite (NEGATIVE) Urine Bilirubin (NEGATIVE) Urine Urobilinogen (0-1) mg/dL Ur Leukocyte Esterase (NEGATIVE) Urine WBC (Auto) (0-5) /HPF Urine RBC (Auto) (0-2) /HPF U Epithel Cells (Auto) (FEW) /HPF Urine Bacteria (Auto) (NEGATIVE) /HPF Urine Mucus (Auto) (NEGATIVE) /HPF Urine Culture Reflexed (NO) Urine Glucose (NEGATIVE) mg/dL Urine Opiates Level (NEGATIVE) Ur Methadone (NEGATIVE) Urine Barbiturates (NEGATIVE) Ur Phencyclidine (PCP) (NEGATIVE) Urine Amphetamine (NEGATIVE) U Benzodiazepine Level (NEGATIVE) Urine Cocaine (NEGATIVE) Urine Marijuana (THC) (NEGATIVE) Influenza Type A Ag (NEGATIVE) Influenza Type B Ag (NEGATIVE) RSV (PCR) (Negative) SARS-CoV-2 (PCR) (NEGATIVE) - Progress Progress: improved Progress Note: Patient reassessed. Work-up essentially nonremarkable at this time. Teleneuro advises admission for MRI/MRV with and without contrast and EEG Covid test pending discussed Dr. Spence who except admission to observation. Plan of care discussed with patient. He agrees to admission [facility] for further evaluation and treatment. Portions of this note were created with voice recognition technology. There may be grammatical, spelling, punctuation or sound alike errors. 06/05/21 21:58 06/05/21 22:59 Covid test is negative 06/05/21 23:[address] Fabio Will see patient in: hospital (observation) Counseled pt/family regarding: lab results, diagnosis, rad results - Departure Departure Disposition: Home Clinical Impression: Seizure, Proteinuria, Urinary tract infection Condition: Stable Critical Care Time: No Referrals: NELLI FALCON [Primary Care Provider] - Follow up/PCP as directed
[2021-06-05] MEDS ORDERED: ROCEPHIN 1 Gm-D5w 50 ml Bag** 1 G/50 ML IVPB IV ONE (20:49)
[2021-06-05 22:20] LABS: INFLUENZA A NEGATIVE (NEGATIVE); INFLUENZA B NEGATIVE (NEGATIVE); RESPIRATORY SYNCTIAL VIRUS NEGATIVE (Negative); SARS-CoV-2 Xpert Express NEGATIVE (NEGATIVE)
[2021-06-05] MEDS ORDERED: TORAdol 30 mg Injection IV ONE (23:07)
[2021-06-05] MEDS ORDERED: Ativan 2 MG/1 ML VIAL IV PRN (23:11)
[2021-06-05] MEDS ORDERED: MOTRIN 600 MG PO PRN (23:23)
[2021-06-06 00:56] LABS: Absolute Neutrophil Ct (ANC) 6.81 (1.4-6.9); Basophil (Absolute #) 0.05 (0-0.4); Eosinophil % 2.3 % (0.00-5.0); Eosinophil (Absolute #) 0.26 (0-0.5); Hematocrit 40.2 % (42-50); Hemoglobin 13.5 gm/dl (12.5-18.0); Lymphocyte (Absolute #) 2.96 (1.0-4.6); Lymphocytes % 26.5 % (24.0-44.0); Mean Corpuscular Hemoglobin 30.9 pg (26-32); Mean Corpuscular Hgb Concent. 33.6 g/dl (32-36); Monocyte (Absolute #) 1.07 (0.0-1.3); Monocytes % 9.6 % (0.0-12.0); Neutrophil % 61.2 % (36.0-66.0); Platelet Count 282 K/mm3 (150-450); Red Blood Count 4.37 M/mm3 (4.1-5.6); Red Cell Distribution Width 13.1 % (11.5-14.0); White Blood Count 11.2 K/mm3 (4.0-10.5)
[2021-06-06 01:05] LABS: ALBUMIN 3.5 g/dL (3.5-5.0); ALKALINE PHOSPHATASE 53 U/L (38-126); ANION GAP 9.1 MEQ/L (5-15); BLOOD UREA NITROGEN 15 mg/dL (9-20); CHLORIDE 107 mmol/L (98-107); Calcium 8.3 mg/dL (8.4-10.2); Carbon Dioxide 24 mmol/L (22-30); Creatinine 1 0.98 mg/dL (0.66-1.25); EST GLOMERULAR FILTRATION RATE > 60.0 ML/MIN; Glucose 95 mg/dL (74-106); Potassium 3.9 mmol/L (3.5-5.1); SGOT/AST 16 U/L (17-59); SGPT/ALT 14 U/L (0-50); SODIUM 136 mmol/L (137-145); Total Protein 5.8 g/dL (6.3-8.2)
--- NOTE | 2021-06-06 08:09 | PCM.HP ---
History of Present Illness - Chief Complaint Chief Complaint: Seizure History of Present Illness: is a 45 year old male with no local physician, followed by Dr Elam in [place], he presented to the ER last evening after a seizure that was witnessed by his . He was in a normal state of health, was sitting on the couch and suddenly developed a tonic/clonic seizure, he has no previous history of seizures. There is no recent trauma, no prior significant head trauma, he is on narcotics for chronic back pain with no recent changes in his regimen. He denies alcohol or illicit drug use, no cough, no fever, no urinary symptoms. - Review of Systems Constitutional: No Fever, No Chills Eyes: No Symptoms Respiratory: No Cough, No Short Of Breath Cardiac: No Symptoms Abdominal/Gastrointestinal: No Abdominal Pain, No Nausea, No Vomiting, No Diarrhea Genitourinary Symptoms: No Dysuria Neurological: Seizure, No Dizziness, No Focal Weakness, No Headache, No Irritability, No Paralysis, No Parasthesia, No Sensory Changes Psychological: No Symptoms, No Alcohol Abuse, No Drug Abuse All Other Systems: Reviewed and Negative Medications & Allergies Home Medications: Home Medication List Morphine Sulfate Cr 60 mg [Ms Contin 60 mg] 15 mg PO BID 11/16/12 [History Confirmed 06/06/21] Hydrocodone/Acetaminophen [Hydrocodon-Acetaminophn 10-325] 1 each PO QIDPRN PRN 01/20/18 [History Confirmed 06/06/21] Sildenafil Citrate [Viagra] 25 mg PO UD PRN 12/04/18 [History Confirmed 06/06/21] Allergies/Adverse Reactions: Allergies Allergy/AdvReac Type Severity Reaction Status Date / Time adhesive Allergy Mild Verified 06/06/21 00:40 blueberry [Blueberry] Allergy Mild Verified 06/06/21 00:40 promethazine HCl Allergy Mild Verified 06/06/21 00:40 [From Phenergan] prednisone AdvReac Verified 06/06/21 00:40 - Past Medical History Past Medical History: Yes Neurological History: Migraines Cardiac History: Other Respiratory History: No Pertinent History Endocrine Medical History: No Pertinent History Musculoskelatal History: Osteoarthritis GI Medical History: No Pertinent History Pyscho-Social History: Anxiety Male Reproductive Disorders: No Pertinent History Comment: heart leaky valve - Past Surgical History Past Surgical History: Yes Neuro Surgical History: No Pertinent History Cardiac History: No Pertinent History Respiratory Surgery: No Pertinent History GI Surgical History: Appendectomy Genitourinary Surgical Hx: Kidney Surgery Musculskeletal Surgical Hx: Orthopedic Surgery Male Surgical History: Testicular Surgery Other Surgical History: back surgery, left and right knee, wrist surgery, sperm granuloma, left arm fx - Social History Smoking Status: Current every day smoker How long have you smoked: 29 Exposure to second hand smoke: Yes Alcohol: None Drug Use: none - Physical Exam Vital Signs: Vital Signs - 24 hr Temp Pulse Resp BP Pulse Ox 06/06/21 04:00 98.4 F 62 18 109/73 95 06/06/21 00:31 98.4 F 65 18 131/89 97 06/05/21 23:07 96 06/05/21 22:00 55 L 26 H 136/86 98 06/05/21 21:09 65 24 141/94 97 06/05/21 20:08 72 16 130/91 96 06/05/21 19:18 85 134/92 98 06/05/21 18:33 98.0 F 98 H 18 141/99 99 General Appearance: no apparent distress, alert Neurologic Exam: alert, oriented x 3, cooperative, normal mood/affect, nml cerebellar function, nml station & gait, sensation nml, No motor deficits Eye Exam: PERRL/EOMI, eyes nml inspection Neck Exam: normal inspection, non-tender, supple, full range of motion Respiratory Exam: normal breath sounds, lungs clear, No respiratory distress Cardiovascular Exam: regular rate/rhythm, normal heart sounds, normal peripheral pulses Gastrointestinal/Abdomen Exam: soft, normal bowel sounds, No tenderness, No mass Extremity Exam: normal inspection, normal range of motion, pelvis stable Skin Exam: normal color, warm, dry, No rash Results - Labs Lab/Micro Results: Lab Results-Last 24 Hours 06/05/21 06/05/21 06/05/21 Range/Units 18:57 18:57 18:57 WBC 8.1 (4.0-10.5) K/mm3 RBC 4.89 (4.1-5.6) M/mm3 Hgb 15.0 (12.5-18.0) gm/dl Hct 44.9 (42-50) % MCV 91.8 (78-100) fl MCH 30.7 (26-32) pg MCHC 33.4 (32-36) g/dl RDW 13.2 (11.5-14.0) % Plt Count 343 (150-450) K/mm3 MPV 9.1 (7.5-11.0) fl Gran % 53.4 (36.0-66.0) % Eos # (Auto) 0.33 (0-0.5) Absolute Lymphs (auto) 2.51 (1.0-4.6) Absolute Monos (auto) 0.86 (0.0-1.3) Lymphocytes % 31.1 (24.0-44.0) % Monocytes % 10.7 (0.0-12.0) % Eosinophils % 4.1 (0.00-5.0) % Basophils % 0.7 (0.0-0.4) % Absolute Granulocytes 4.31 (1.4-6.9) Basophils # 0.06 (0-0.4) D-Dimer < 215 L (215-500) ng/mL Sodium 140 (137-145) mmol/L Potassium 4.1 (3.5-5.1) mmol/L Chloride 106 (98-107) mmol/L Carbon Dioxide 27 (22-30) mmol/L Anion Gap 11.1 (5-15) MEQ/L BUN 16 (9-20) mg/dL Creatinine 1.37 H (0.66-1.25) mg/dL Estimated GFR 60.0 ML/MIN Glucose 103 (74-106) mg/dL Calcium 9.5 (8.4-10.2) mg/dL Magnesium 2.1 (1.6-2.3) mg/dL Total Bilirubin 0.40 (0.2-1.3) mg/dL AST 17 (17-59) U/L ALT 16 (0-50) U/L Alkaline Phosphatase 63 (38-126) U/L Troponin I (0.000-0.034) ng/mL Serum Total Protein 6.7 (6.3-8.2) g/dL Albumin 4.3 (3.5-5.0) g/dL Urine Color (YELLOW) Urine Appearance (CLEAR) Urine pH (5-6) Ur Specific [place] (1.005-1.025) Urine Protein (Negative) Urine Ketones (NEGATIVE) Urine Blood (0-5) Keith/ul Urine Nitrite (NEGATIVE) Urine Bilirubin (NEGATIVE) Urine Urobilinogen (0-1) mg/dL Ur Leukocyte Esterase (NEGATIVE) Urine WBC (Auto) (0-5) /HPF Urine RBC (Auto) (0-2) /HPF U Epithel Cells (Auto) (FEW) /HPF Urine Bacteria (Auto) (NEGATIVE) /HPF Urine Mucus (Auto) (NEGATIVE) /HPF Urine Culture Reflexed (NO) Urine Glucose (NEGATIVE) mg/dL Urine Opiates Level (NEGATIVE) Ur Methadone (NEGATIVE) Urine Barbiturates (NEGATIVE) Ur Phencyclidine (PCP) (NEGATIVE) Urine Amphetamine (NEGATIVE) U Benzodiazepine Level (NEGATIVE) Urine Cocaine (NEGATIVE) Urine Marijuana (THC) (NEGATIVE) Influenza Type A Ag (NEGATIVE) Influenza Type B Ag (NEGATIVE) RSV (PCR) (Negative) SARS-CoV-2 (PCR) (NEGATIVE) 06/05/21 06/05/21 06/05/21 Range/Units 18:57 18:57 18:57 WBC (4.0-10.5) K/mm3 RBC (4.1-5.6) M/mm3 Hgb (12.5-18.0) gm/dl Hct (42-50) % MCV (78-100) fl MCH (26-32) pg MCHC (32-36) g/dl RDW (11.5-14.0) % Plt Count (150-450) K/mm3 MPV (7.5-11.0) fl Gran % (36.0-66.0) % Eos # (Auto) (0-0.5) Absolute Lymphs (auto) (1.0-4.6) Absolute Monos (auto) (0.0-1.3) Lymphocytes % (24.0-44.0) % Monocytes % (0.0-12.0) % Eosinophils % (0.00-5.0) % Basophils % (0.0-0.4) % Absolute Granulocytes (1.4-6.9) Basophils # (0-0.4) D-Dimer (215-500) ng/mL Sodium (137-145) mmol/L Potassium (3.5-5.1) mmol/L Chloride (98-107) mmol/L Carbon Dioxide (22-30) mmol/L Anion Gap (5-15) MEQ/L BUN (9-20) mg/dL Creatinine (0.66-1.25) mg/dL Estimated GFR ML/MIN Glucose (74-106) mg/dL Calcium (8.4-10.2) mg/dL Magnesium (1.6-2.3) mg/dL Total Bilirubin (0.2-1.3) mg/dL AST (17-59) U/L ALT (0-50) U/L Alkaline Phosphatase (38-126) U/L Troponin I < 0.012 (0.000-0.034) ng/mL Serum Total Protein (6.3-8.2) g/dL Albumin (3.5-5.0) g/dL Urine Color YELLOW (YELLOW) Urine Appearance SLIGHTLY CLOUDY (CLEAR) Urine pH 6.0 (5-6) Ur Specific [place] 1.025 (1.005-1.025) Urine Protein 100 (Negative) Urine Ketones TRACE (NEGATIVE) Urine Blood NEGATIVE (0-5) Keith/ul Urine Nitrite NEGATIVE (NEGATIVE) Urine Bilirubin NEGATIVE (NEGATIVE) Urine Urobilinogen 2 (0-1) mg/dL Ur Leukocyte Esterase NEGATIVE (NEGATIVE) Urine WBC (Auto) 6-10 (0-5) /HPF Urine RBC (Auto) 6-10 (0-2) /HPF U Epithel Cells (Auto) NONE (FEW) /HPF Urine Bacteria (Auto) MODERATE (NEGATIVE) /HPF Urine Mucus (Auto) SLIGHT (NEGATIVE) /HPF Urine Culture Reflexed YES (NO) Urine Glucose NEGATIVE (NEGATIVE) mg/dL Urine Opiates Level NEGATIVE (NEGATIVE) Ur Methadone NEGATIVE (NEGATIVE) Urine Barbiturates NEGATIVE (NEGATIVE) Ur Phencyclidine (PCP) NEGATIVE (NEGATIVE) Urine Amphetamine NEGATIVE (NEGATIVE) U Benzodiazepine Level NEGATIVE (NEGATIVE) Urine Cocaine NEGATIVE (NEGATIVE) Urine Marijuana (THC) NEGATIVE (NEGATIVE) Influenza Type A Ag (NEGATIVE) Influenza Type B Ag (NEGATIVE) RSV (PCR) (Negative) SARS-CoV-2 (PCR) (NEGATIVE) 06/05/21 06/05/21 06/06/21 Range/Units 21:32 21:50 00:49 WBC (4.0-10.5) K/mm3 RBC (4.1-5.6) M/mm3 Hgb (12.5-18.0) gm/dl Hct (42-50) % MCV (78-100) fl MCH (26-32) pg MCHC (32-36) g/dl RDW (11.5-14.0) % Plt Count (150-450) K/mm3 MPV (7.5-11.0) fl Gran % (36.0-66.0) % Eos # (Auto) (0-0.5) Absolute Lymphs (auto) (1.0-4.6) Absolute Monos (auto) (0.0-1.3) Lymphocytes % (24.0-44.0) % Monocytes % (0.0-12.0) % Eosinophils % (0.00-5.0) % Basophils % (0.0-0.4) % Absolute Granulocytes (1.4-6.9) Basophils # (0-0.4) D-Dimer (215-500) ng/mL Sodium (137-145) mmol/L Potassium (3.5-5.1) mmol/L Chloride (98-107) mmol/L Carbon Dioxide (22-30) mmol/L Anion Gap (5-15) MEQ/L BUN (9-20) mg/dL Creatinine (0.66-1.25) mg/dL Estimated GFR ML/MIN Glucose (74-106) mg/dL Calcium (8.4-10.2) mg/dL Magnesium (1.6-2.3) mg/dL Total Bilirubin (0.2-1.3) mg/dL AST (17-59) U/L ALT (0-50) U/L Alkaline Phosphatase (38-126) U/L Troponin I < 0.012 < 0.012 (0.000-0.034) ng/mL Serum Total Protein (6.3-8.2) g/dL Albumin (3.5-5.0) g/dL Urine Color (YELLOW) Urine Appearance (CLEAR) Urine pH (5-6) Ur Specific [place] (1.005-1.025) Urine Protein (Negative) Urine Ketones (NEGATIVE) Urine Blood (0-5) Keith/ul Urine Nitrite (NEGATIVE) Urine Bilirubin (NEGATIVE) Urine Urobilinogen (0-1) mg/dL Ur Leukocyte Esterase (NEGATIVE) Urine WBC (Auto) (0-5) /HPF Urine RBC (Auto) (0-2) /HPF U Epithel Cells (Auto) (FEW) /HPF Urine Bacteria (Auto) (NEGATIVE) /HPF Urine Mucus (Auto) (NEGATIVE) /HPF Urine Culture Reflexed (NO) Urine Glucose (NEGATIVE) mg/dL Urine Opiates Level (NEGATIVE) Ur Methadone (NEGATIVE) Urine Barbiturates (NEGATIVE) Ur Phencyclidine (PCP) (NEGATIVE) Urine Amphetamine (NEGATIVE) U Benzodiazepine Level (NEGATIVE) Urine Cocaine (NEGATIVE) Urine Marijuana (THC) (NEGATIVE) Influenza Type A Ag NEGATIVE (NEGATIVE) Influenza Type B Ag NEGATIVE (NEGATIVE) RSV (PCR) NEGATIVE (Negative) SARS-CoV-2 (PCR) NEGATIVE (NEGATIVE) 06/06/21 06/06/21 Range/Units 00:49 00:49 WBC 11.2 H (4.0-10.5) K/mm3 RBC 4.37 (4.1-5.6) M/mm3 Hgb 13.5 (12.5-18.0) gm/dl Hct 40.2 L (42-50) % MCV 92.0 (78-100) fl MCH 30.9 (26-32) pg MCHC 33.6 (32-36) g/dl RDW 13.1 (11.5-14.0) % Plt Count 282 (150-450) K/mm3 MPV 9.0 (7.5-11.0) fl Gran % 61.2 (36.0-66.0) % Eos # (Auto) 0.26 (0-0.5) Absolute Lymphs (auto) 2.96 (1.0-4.6) Absolute Monos (auto) 1.07 (0.0-1.3) Lymphocytes % 26.5 (24.0-44.0) % Monocytes % 9.6 (0.0-12.0) % Eosinophils % 2.3 (0.00-5.0) % Basophils % 0.4 (0.0-0.4) % Absolute Granulocytes 6.81 (1.4-6.9) Basophils # 0.05 (0-0.4) D-Dimer (215-500) ng/mL Sodium 136 L (137-145) mmol/L Potassium 3.9 (3.5-5.1) mmol/L Chloride 107 (98-107) mmol/L Carbon Dioxide 24 (22-30) mmol/L Anion Gap 9.1 (5-15) MEQ/L BUN 15 (9-20) mg/dL Creatinine 0.98 (0.66-1.25) mg/dL Estimated GFR > 60.0 ML/MIN Glucose 95 (74-106) mg/dL Calcium 8.3 L (8.4-10.2) mg/dL Magnesium (1.6-2.3) mg/dL Total Bilirubin 0.30 (0.2-1.3) mg/dL AST 16 L (17-59) U/L ALT 14 (0-50) U/L Alkaline Phosphatase 53 (38-126) U/L Troponin I (0.000-0.034) ng/mL Serum Total Protein 5.8 L (6.3-8.2) g/dL Albumin 3.5 (3.5-5.0) g/dL Urine Color (YELLOW) Urine Appearance (CLEAR) Urine pH (5-6) Ur Specific [place] (1.005-1.025) Urine Protein (Negative) Urine Ketones (NEGATIVE) Urine Blood (0-5) Keith/ul Urine Nitrite (NEGATIVE) Urine Bilirubin (NEGATIVE) Urine Urobilinogen (0-1) mg/dL Ur Leukocyte Esterase (NEGATIVE) Urine WBC (Auto) (0-5) /HPF Urine RBC (Auto) (0-2) /HPF U Epithel Cells (Auto) (FEW) /HPF Urine Bacteria (Auto) (NEGATIVE) /HPF Urine Mucus (Auto) (NEGATIVE) /HPF Urine Culture Reflexed (NO) Urine Glucose (NEGATIVE) mg/dL Urine Opiates Level (NEGATIVE) Ur Methadone (NEGATIVE) Urine Barbiturates (NEGATIVE) Ur Phencyclidine (PCP) (NEGATIVE) Urine Amphetamine (NEGATIVE) U Benzodiazepine Level (NEGATIVE) Urine Cocaine (NEGATIVE) Urine Marijuana (THC) (NEGATIVE) Influenza Type A Ag (NEGATIVE) Influenza Type B Ag (NEGATIVE) RSV (PCR) (Negative) SARS-CoV-2 (PCR) (NEGATIVE) - Radiology Impressions Radiology Exams & Impressions: Radiology Procedures Category Date Time Status CTA HEAD W AND/OR WO CONTRAST [CT] Stat Exams 06/05/21 20:10 Taken MRI BRAIN W & W/O CONTRAST [MRI] Routine Exams 06/06/21 07:38 Ordered - Other Procedures and Tests Respiratory Therapy 06/06/21 08:05 EEG 41-60 Minutes (Normal) ONCE Assessment/Plan (1) Seizure Current Visit: Yes Status: Acute Assessment & Plan: check eeg and MRI brain with/without per neuro recommendation. will need neuro consult after discharge. advised patient no driving until released. Code(s): R56.9 - UNSPECIFIED CONVULSIONS (2) Urinary tract infection Current Visit: Yes Status: Acute Assessment & Plan: on rocephin, u/a from ER questionable for UTI, culture pending. Code(s): N39.0 - URINARY TRACT INFECTION, SITE NOT SPECIFIED
--- NOTE | 2021-06-06 09:06 | XRAY ---
Indication: Seizure. Headache. Conventional contrast enhanced CTA head performed using 80 cc Isovue 370 contrast. Two-dimensional sagittal and coronal reformatted images obtained. Additional 3-dimensional reformatted images obtained using a separate workstation. Comparison: None Distal internal carotid arteries are bilaterally symmetric without critical stenosis, obstruction, or AV malformation. Normal carotid terminus with normal branching A1 and M1 segments bilaterally. More distal anterior cerebral and middle cerebral arteries are normal in CTA appearance. Distal vertebral arteries are bilaterally patent with the left larger in caliber. Remaining basilar, left/right posterior cerebral, and left/right superior cerebellar arteries are normal in CTA appearance. Venous drainage/sinuses are unremarkable. No abnormal enhancing intra-or extra-axial mass. Bony calvarium intact. Floor right maxillary sinus demonstrates 1.2 cm polyp/retention cyst. Remaining paranasal sinuses and mastoid air cells are clear. Impression: 1. Normal CTA head with contrast exam. 2. Incidental right maxillary sinus polyp/retention cyst.
[2021-06-06] MEDS ORDERED: HYDROCODONE-ACETAMIN 10-325 MG PO PRN (09:28)
[2021-06-06] MEDS ORDERED: Ms Contin 15 MG PO SCH (10:00)
[2021-06-06 10:57] VITALS: O2SAT 96
--- NOTE | 2021-06-06 11:34 | XRAY ---
Indication: New onset seizure. Sagittal, coronal, and axial MRI brain performed using pre and post T1, T2, FLAIR, diffusion, and ADC sequences. 15 cc Dotarem contrast used. Comparison: None Ventriculosulcal pattern appears symmetric. No acute intracranial hemorrhage, abnormal extra-axial fluid collection, or mass effect. Diffusion images are negative for restricted signal. Following gadolinium, there is no abnormal enhancing intra or extra-axial mass. Fourth ventricle is midline without hydrocephalus. 7/8 cranial nerve complex bilaterally symmetric. Normal flow-void signal within the major intracerebral circulation. Normal appearing craniocervical junction and sella turcica. Visualized paranasal sinuses are clear. Impression: Negative MRI brain with contrast exam.
[2021-06-06 13:12] VITALS: BP 118/84; PULSE 68
--- NOTE | 2021-06-06 15:44 | PCM.DCORD ---
- Discharge Disposition: Home, Self-Care Condition: Stable Prescriptions: Continue Morphine Sulfate Cr 60 mg [Ms Contin 60 mg] 15 mg PO BID Hydrocodone/Acetaminophen [Hydrocodon-Acetaminophn 10-325] 1 each PO QIDPRN PRN PRN Reason: Pain Sildenafil Citrate [Viagra] 25 mg PO UD PRN PRN Reason: Anxiety/Agitation Instructions: Seizures, Adult (DC) Additional Instructions: your brain MRI is normal and the EEG shows no abnormal focus for seizures. NO DRIVING until released by neurology, no unprotected heights. needs to see Neurology LEONARDO and f/u with Dr Johnson Follow up with: NELLI FALCON [Primary Care Provider] - 1 Week DONTRELL ONEILL DO [NON-STAFF PHY W/O PRIVILEGES] - Call for Appointment (schedule with P neurology first available LEONARDO) Forms: Discharge Instructions
== END 2021-06-06 16:03 | disposition home or self-care (01) ==
LOC: ED 18:21 → MED SURG 23:08
PROVIDERS: ADMIT Family Medicine; ATTEND Family Medicine
DX: R56.9 Unspecified convulsions (principal); N39.0 Urinary tract infection, site not specified; M54.9 Dorsalgia, unspecified; Z79.899 Other long term (current) drug therapy; Z20.828 Contact with and (suspected) exposure to other viral communicable diseases; Z72.0 Tobacco use
CPT/HCPCS: 0241U; 36000; 36415; 70496; 70553; 80053; 80307; 81001; 83735; 84484; 85025; 85379; 87086; 93005; 93041; 93268; 94760; 95812; 96374; 99285; G0378; J0696